=== PATIENT | female | born 1955 | race Asian ===

== ENCOUNTER 2016-09-04 17:10 | Emergency (ER) | payer BC, OTHER ==
[2016-09-04 17:28] VITALS: BP 153/86
--- NOTE | 2016-09-04 18:00 | UC ---
[facility] HPI - HPI Summary HPI Summary: complaint of dental pain in her left upper jaw started yesterday woke up with swelling in face and today feels hot and slightly more painful more painful with chewing and cold denies fever not taking any medication for pain - History of Current Complaint Chief Complaint: UCDentalProblem Stated Complaint: DENTAL COMPLAINT Time Seen by Provider: 09/04/16 17:54 Hx Obtained From: Patient - Allergies/Home Medications Allergies/Adverse Reactions: Allergies Allergy/AdvReac Type Severity Reaction Status Date / Time Penicillins [PCN] Allergy Hives Verified 09/04/16 17:28 Home Medications: Home Medications Losartan TAB* [Cozaar TAB*] 25 mg PO DAILY 09/04/16 [History Confirmed 09/04/16] PMH/Surg Hx/FS Hx/Imm Hx Previously Healthy: Yes Cardiovascular History Of: Reports: Hypertension - Surgical History Surgical History: None - Family History Known Family History: Positive: Hypertension - parentd Negative: Cardiac Disease, Diabetes - Social History Occupation: Employed Full-time Lives: With Family Alcohol Use: None Substance Use Type: None Smoking Status (MU): Never Smoked Tobacco Review of Systems Constitutional: Negative Skin: Negative Eyes: Negative ENT: Dental Pain Respiratory: Negative Cardiovascular: Negative Gastrointestinal: Negative Genitourinary: Negative Motor: Negative Neurovascular: Negative Musculoskeletal: Negative Neurological: Negative Psychological: Negative All Other Systems Reviewed And Are Negative: Yes Physical Exam Triage Information Reviewed: Yes Appearance: No Pain Distress, Well-Nourished Vital Signs: Initial Vital Signs Temp 97.7 F 09/04/16 17:23 Pulse 68 09/04/16 17:23 Resp 18 09/04/16 17:23 BP 153/86 09/04/16 17:23 Pulse Ox 99 09/04/16 17:23 Vital Signs Reviewed: Yes Eyes: Positive: Conjunctiva Clear ENT: Positive: Pharynx normal, TMs normal. Negative: Nasal congestion Dental: Positive: Cervical Lymphadenopathy - 14-15, area of edema above teeth, warm to touch on uppr area of mouth left side Neck: Positive: No Lymphadenopathy Respiratory: Positive: Lungs clear, Normal breath sounds, No respiratory distress, No accessory muscle use Cardiovascular: Positive: RRR, No Murmur, Pulses Normal Abdomen Description: Positive: Nontender, Soft Bowel Sounds: Positive: Present Musculoskeletal: Positive: No Edema Neurological: Positive: Alert Psychological Exam: Normal Skin Exam: Normal Dental Complaint Course/Dx - Differential Dx/Diagnosis Differential Diagnosis/Dx: Dental Abscess Provider Diagnoses: dental abscess, elevated blood pressure Discharge - Discharge Plan Condition: Stable Disposition: HOME Prescriptions: Clindamycin Cap(NF) [Cleocin 300 mg Cap(NF)] 300 mg PO TID #30 cap Patient Education Materials: Dental Abscess (ED) Referrals: [facility] [Outside] Additional Instructions: DENTAL ABSCESS What is a Dental Abscess? A dental abscess is an infection around the root of a tooth or in the gums or jawbone. The infection causes pus to collect, and a lump can appear. Dental abscesses often get their start when bacteria invade a decayed tooth; the decay may then travel to the gums or jawbone. Decay can also begin in the mouth when teeth are not brushed or flossed properly. Symptoms Might Include: In general, you'll start to have a fever, redness and swelling of the gums or cheek. If you have a lump it may feel hot. Other signs include tooth or mouth pain, a loose tooth, or not being able to close your mouth all the way. If the abscess spreads, your face, neck, or chest may swell. Treatment Recommendations: Rinse your mouth with warm water every hour or as needed to ease the pain. This will help draw the infection from the abscess. For pain, you may take non-prescription medicines such as acetaminophen ( Tylenol) or ibuprofen (Motrin, Advil). To help ease the pain, do not chew on the sore side for at least 2 days; you may need to limit yourself to a liquid diet. Putting ice on your face over the affected area may also relieve the pain. Apply the ice for 10 to 20 minutes out of every hour. Do not leave the ice on for long periods or you can get frostbite. If the abscess is drained, there may be a small hole or drain. Keep the area free of food by rinsing with water after eating. You'll need to return or be seen by a dentist to have the drain removed. The healthcare provider may have prescribed an antibiotic medicine. The medicine should be taken until it is completely gone, even if you are feeling better. If you stop taking the medicine early, the infection may not be completely gone, and the medication may not work the next time. To prevent abscesses: [place] regularly with a toothbrush recommended by your dentist. Floss daily and use a fluoride mouthwash, toothpaste, tablets, or supplements as instructed by your dentist or dental hygienist. Reduce the amount of sugar in your diet. Call Your Doctor or Return Here IF: You have a high temperature Your pain becomes worse You have any new symptoms or problems that may be due to the medicine you are taking You have new or increased swelling in your face, jaw, cheek, eye, or neck You have any other new symptoms that worry you Your blood pressure is elevated. Please contact your primary care provider within 1 -4 weeks for further evaluation.
== END 2016-09-04 18:24 | disposition home or self-care (01) ==
LOC: UCEAST 17:10
DX: K04.7 Periapical abscess without sinus (principal); I10 Essential (primary) hypertension; Z88.0 Allergy status to penicillin
CPT/HCPCS: 99202; G0463

== ENCOUNTER 2016-09-10 18:05 | Emergency (ER) | payer OTHER ==
--- NOTE | 2016-09-10 20:34 | UC ---
Skin Complaint HPI - HPI Summary HPI Summary: 60 female presents with complaints of redness, swelling and itching on left anterior elbow and 2 over area of right shoulder that she was concerned was a tick. Patient has never had or seen a tick before. Not familiar with ticks. Did not remove any tick or bug from bite wounds. Noticed the bites upon waking this morning when in the shower. Denies being outside. States the areas do somewhat itch. Denies discharge. No other complaints at this time. PMHx significant for HTN. - History of Current Complaint Chief Complaint: UCSkin Time Seen by Provider: 09/10/16 20:20 Stated Complaint: TICK BITE Hx Obtained From: Patient ?: No Onset/Duration: Sudden Onset, Lasting Hours Skin Exposure Onset/Duration: Hours Ago Timing: Constant Onset Severity: Mild Current Severity: Mild Pain Intensity: 0 Pain Scale Used: 0-10 Numeric Location: Other - left anterior elbow, right shoulder x2 Character: Swelling, Pruritus, Redness Aggravating: Nothing Alleviating: Nothing, Treatment [employer]: - neosporin Associated Signs & Symptoms: Positive: Negative Related History: Insect Bite/Sting - Allergy/Home Medications Allergies/Adverse Reactions: Allergies Allergy/AdvReac Type Severity Reaction Status Date / Time Penicillins [PCN] Allergy Hives Verified 09/10/16 19:13 Review of Systems Constitutional: Negative Skin: Rash - bites x 3 Respiratory: Negative Cardiovascular: Negative Gastrointestinal: Negative Motor: Negative Neurovascular: Negative Neurological: Negative All Other Systems Reviewed And Are Negative: Yes PMH/Surg Hx/FS Hx/Imm Hx Cardiovascular History: Hypertension - Surgical History Surgical History: None - Family History Known Family History: Positive: Hypertension - parentd Negative: Cardiac Disease, Diabetes - Social History Alcohol Use: None Substance Use Type: None Smoking Status (MU): Never Smoked Tobacco - Immunization History Vaccination Up to Date: Yes Physical Exam Triage Information Reviewed: Yes Appearance: Well-Appearing, No Pain Distress, Well-Nourished Vital Signs: Initial Vital Signs Temp 97.7 F 09/10/16 19:13 Pulse 63 09/10/16 19:13 Resp 16 09/10/16 19:13 BP 179/75 09/10/16 19:13 Pulse Ox 100 09/10/16 19:13 patient diagnosed with htn, hasnt taken evening dose Vital Signs Reviewed: Yes Eyes: Positive: Conjunctiva Clear ENT: Positive: Normal ENT inspection, Hearing grossly normal Neck: Positive: Supple, Nontender, No Lymphadenopathy Respiratory: Positive: Chest non-tender, Lungs clear, Normal breath sounds, No respiratory distress, No accessory muscle use Cardiovascular: Positive: RRR, No Murmur, Pulses Normal, Brisk Capillary Refill Musculoskeletal: Positive: Strength Intact, ROM Intact, No Edema Neurological: Positive: Alert Skin: Positive: Other - 3 erythematous bug bites, one on anterior left elbow/ forearm and 2 over right shoulder, both with some swelling, left elbow worst appeared. no sign of tick or FB. uritcaric in nature. no discharge or concern of cellulitis. appear to be spider/insect bites. Course/Dx - Course Course Of Treatment: reassured and educated about tick bites and lyme disease. appears to be spider versus insect bites due to PE findings and HPI. told to continue neosporin and cortisporin. also recommended benedryl if worsen. aware of worsening sign and symptoms to watch out for. follow up pcp. - Differential Diagnoses - Skin Complaint Differential Diagnoses: Cellulitis, Contact Dermatitis, Local Allergic Reaction , Tick Born Illness, Urticaria, Viral Exanthem, Other - Diagnoses Provider Diagnoses: insect versus spider bites Discharge - Discharge Plan Condition: Stable Disposition: HOME Patient Education Materials: Insect Bite or Sting (ED) Referrals: Real Mensah MD [Primary Care Provider] - Additional Instructions: Use Neosporin and Coritsporin cream on and off for the next couple of days until symptoms improve. You may also take oral Benedryl at bedtime if it becomes too itchy and swollen. If symptoms worsen such as increased redness, swelling and pain please seek medical attention. Follow up with primary care provider.
[2016-09-10 20:43] VITALS: BP 156/80
== END 2016-09-10 20:53 | disposition home or self-care (01) ==
LOC: UCEAST 18:05
DX: S50.362A Insect bite (nonvenomous) of left elbow, initial encounter (principal); S50.862A Insect bite (nonvenomous) of left forearm, initial encounter; S40.261A Insect bite (nonvenomous) of right shoulder, initial encounter; W57.XXXA Bitten or stung by nonvenomous insect and other nonvenomous arthropods, initial encounter; I10 Essential (primary) hypertension; Y93.9 Activity, unspecified; Y92.9 Unspecified place or not applicable; Z88.0 Allergy status to penicillin
CPT/HCPCS: 99211; G0463